=== PATIENT | male | born 1990 | race Caucasian/White ===

== ENCOUNTER 2016-09-11 00:23 | Emergency (ER) | payer BC, OTHER ==
[~2016-09-11] VITALS: Ht 190.5 cm; Wt 91.7 kg
[2016-09-11 00:27] VITALS: TEMP 36.8; Ht 190.5 cm; Wt 91.7 kg
[2016-09-11] MEDS ORDERED: DIPHTHERIA/TETANUS/PERTUSSIS 0.5 ML SYR/VIAL IM. ONE (00:45)
[2016-09-11] MEDS ORDERED: XYLOCAINE 1%/SOD BICARB 20 ML VIAL INFIL ONE (00:45)
[2016-09-11] MEDS ORDERED: CEPH500C PO (01:21)
[2016-09-11] MEDS ORDERED: OMEP40CA41 PO (01:26)
[2016-09-11] MEDS ORDERED: CEPHALEXIN 500MG HOME PACK 1 EA BTL PO ONE (01:30)
[2016-09-11 01:46] VITALS: BP 128/68; PULSE 76; O2SAT 98
--- NOTE | 2016-09-12 11:37 | EMERGENCY ROOM VISIT NOTE ---
ED Visit Note First contact with patient: 00:32 CHIEF COMPLAINT: Hand laceration HISTORY OF PRESENT ILLNESS: This 25-year-old male patient presents to the emergency department after cutting the posterior aspect of the left hand about one hour ago. The patient was working near an oven, when he felt an electric shock, and jerked his hand away. He cut himself on a piece of metal in this process. The bleeding has stopped. Denies weakness or numbness of the hand or fingers. The patient rates the pain as dull and 4/10. The patient denies any other injuries. The patient's Tetanus shot is not up to date. REVIEW OF SYSTEMS: A 6 system review of systems was completed with positives and pertinent negatives listed in the HPI. ALLERGIES: No known allergies MEDICATIONS: No chronic medications PMH: No chronic medical disease SOCIAL HISTORY: Employed and lives with significant other PHYSICAL EXAM: Vital Signs: Reviewed Nurse's notes, vital signs stable. GENERAL : White male, in no acute distress, well-developed, well-nourished. SKIN: There is a C shaped 4.5 cm long laceration on the posterior aspect of the left hand across the left second carpal. The edges gape apart with traction. There is no foreign material in the wound and it looks clean. There is no significant bleeding. No deep structures such as tendons, bones, or significant blood vessels are seen in the base of the wound. Normal strength and movement of the fingers and wrist. Capillary refill less than 2 seconds. Normal sensation to light and sharp touch. EMERGENCY DEPARTMENT COURSE: I examined the patient. Verbal consent was obtained to perform the procedure. Using sterile technique the wound was cleansed with Betadine. The area was sterilely draped. 6 ml of 1% buffered lidocaine was used to anesthetize the laceration on the hand. Once the patient was anesthetized, the wound was copiously irrigated under pressure with sterile saline. The wound was explored and there appears to be a small laceration to what appears to be an extensor tendon across the left second digit. The patient is able to flex and extend his digits against resistance. The laceration was repaired using 10 simple interrupted 4-0 nylon sutures with the wound edges being well approximated. The patient tolerated the procedure well. Hemostasis was achieved. The area was cleaned with sterile saline and dressed with bacitracin ointment and bandage. The patient was given Td immunization. The patient will be discharged home with a course of antibiotics. He will need to follow-up with orthopedics as his wound does appear with a tendon injury. He was otherwise invited back to the ER with any new, worsening, or concerning symptoms. Current/Historical Medications Scheduled Cephalexin Monohydrate (Keflex), 500 MG PO TID Omeprazole (Prilosec), 40 MG PO DAILY Allergies Coded Allergies: No Known Allergies (Unverified , 09/11/16) Vital Signs Date Time Temp Pulse Resp B/P (MAP) Pulse Ox O2 Delivery O2 Flow Rate FiO2 09/11/16 01:46 76 18 128/68 98 09/11/16 00:27 36.8 72 16 126/76 99 Room Air Medications Administered Medications (Trade) Dose Ordered Sig/Jeimy Route Start Time Stop Time Status Last Admin Dose Admin Diphtheria/ Pertussis/Tetanus Vacc (Adacel Inj) 0.5 ml ONCE ONCE IM. 09/11/16 00:45 09/11/16 00:46 DC 09/11/16 01:37 0.5 ML Cephalexin Monohydrate (Keflex 500MG Home Pack) 1 homepack NOW ONCE PO 09/11/16 01:30 09/11/16 01:31 DC 09/11/16 01:38 1 HOMEPACK Departure Information Impression Primary Impression: Hand laceration involving tendon Dispostion Home / Self-Care Condition GOOD Prescriptions Cephalexin Monohydrate (Keflex) 500 Mg Cap 500 MG PO TID for 6 Days, #18 CAP Prov: Nam Rucker PA-C 09/11/16 Referrals Marco Hilton MD Forms HOME CARE DOCUMENTATION FORM, IMPORTANT VISIT INFORMATION Patient Instructions My [facility] Additional Instructions You were seen and evaluated today on an emergency basis only. This is not a substitute for, or an effort to provide, complete comprehensive medical care. It is not possible to recognize and treat all injuries or illnesses in a single emergency department visit. For this reason it is recommended that you followup with [facility] , Dr. Hilton's office, by telephone in the morning to arrange a follow-up visit this week. Cephalexin(Keflex) 500mg: Take one pill 3 times daily for 7 days to prevent skin infection. All antibiotics can cause diarrhea. If this occurs and you feel worse or it does not resolve in 1-2 days follow up with your doctor or return to the Emergency Department as this could be signs of serious underlying problems. Any medication can cause an allergic reaction, stop the pills immediately and return to the ER for rash, hives, breathing difficulties, or swelling. Keep wound clean and dry. Do not allow any crusting or dried blood to accumulate on sutures. If this occurs, use a mild soap/water on a Q-tip to clean the wound. Do not use Peroxide to clean the wound as this can delay healing Use an antibiotic ointment like Bacitracin for 3-4 days, then let wound dry. You may bathe and shower as normal, but DO NOT SOAK the wound. Suture removal in about 10 days with your Family Doctor or in the ER. Return sooner for any signs of infection, increasing redness, swelling, or drainage. You are welcome to return to the emergency department anytime with new, worsening, or concerning symptoms.
== END 2016-09-11 01:47 | disposition home or self-care (01) ==
LOC: C.EDB 00:25 → C.EDC 01:47
DX: S61.412A Laceration without foreign body of left hand, initial encounter (principal); S66.922A Laceration of unspecified muscle, fascia and tendon at wrist and hand level, left hand, initial encounter; W45.8XXA Other foreign body or object entering through skin, initial encounter; Y99.0 Civilian activity done for income or pay; Z23 Encounter for immunization